=== PATIENT | male | born 1960 | race Caucasian/White ===

== ENCOUNTER → 2018-10-05 | Outpatient (CLI) | payer OTHER | LOC: M.MRI 10:51 | DX: M17.12 Unilateral primary osteoarthritis, left knee (principal); M25.462 Effusion, left knee; M23.312 Other meniscus derangements, anterior horn of medial meniscus, left knee; M23.672 Other spontaneous disruption of capsular ligament of left knee; M23.352 Other meniscus derangements, posterior horn of lateral meniscus, left knee; Z96.652 Presence of left artificial knee joint ==

== ENCOUNTER 2018-10-27 06:53 | Inpatient (IN) | payer OTHER ==
[2018-10-15 09:01] LABS: HEMATOCRIT 44.5 % (42.0-52.0); HEMOGLOBIN 15.5 gm/dL (14.0-18.0); MCH 31.7 pg (26.0-34.0); MCHC 34.8 g/dL (28.0-37.0); MCV 90.9 fL (80.0-100.0); MPV 7.7 fl. (7.2-11.1); RBC 4.89 mil/uL (4.50-6.00); RDW-CV 13.2 % (10.5-14.5); WBC 4.9 thou/uL (4.0-11.0)
[2018-10-15 09:02] LABS: URINE BILIRUBIN NEGATIVE (Negative); URINE BLOOD NEGATIVE (Negative); URINE CLARITY CLEAR; URINE COLOR YELLOW; URINE GLUCOSE-RANDOM NEGATIVE (Negative); URINE KETONES NEGATIVE (Negative); URINE LEUKOCYTES-REFLEX NEGATIVE (Negative); URINE NITRITE-REFLEX NEGATIVE (Negative); URINE PROTEIN NEGATIVE (Negative); URINE SPECIFIC GRAVITY <= 1.005 (1.005-1.030); URINE UROBILINOGEN 0.2 E.U./dl (0.2-1.0)
[2018-10-15 09:10] LABS: PROTIME 9.8 Seconds (9.20-11.50)
[2018-10-15 10:10] LABS: ALBUMIN 3.8 g/dL (3.4-5.0); POTASSIUM 3.9 mmol/L (3.5-5.1); TOTAL BILIRUBIN 0.7 mg/dL (<0.1-1.0); TOTAL PROTEIN 7.3 g/dL (6.4-8.2)
--- NOTE | 2018-10-15 16:41 | EKG ---
[place] [address] ELECTROCARDIOGRAM REPORT Name: BERTHA MONTEZ Room: PRE IN [facility]#: [id number] Admission: Attend Phys: Archana Gomez Discharge: Date of : 64 Report #: [id number] THIS REPORT FOR: //name// [facility] Test Date: 2018-10-15 Test Time: 09:12:20 Pat Name: BERTHA GARNETTWALLACE Department: Room: Gender: M Strategic Partnership Manager: : 1960 Requested By: Kamron Tarango Order Number: [id number] Reading MD: Satish Mccoy Measurements Intervals Robinson Rate: 60 P: 15 MS: 142 QRS: 9 QRSD: 86 T: -5 QT: 409 QTc: 409 Interpretive Statements Sinus rhythm Borderline T abnormalities, inferior leads No previous ECG available for comparison Electronically Signed On 10-15-2018 16:41:09 HVAC SPECIALIST by Satish Mccoy [email or web address] <ELECTRONICALLY SIGNED> By: Satish Mccoy MD, [facility] 10/15/18 1641 0912 1 Satish Mccoy MD, FACC /EPI
[~2018-10-27] VITALS: Ht 160 cm; Wt 89.8 kg
--- NOTE | ~2018-10-27 | OP ---
[facility] [address] [place] [address] OPERATIVE REPORT Name: BERTHA MONTEZ Room: [address] IN M.R.#: [id number] Admission: 10/27/18 Attend Phys: Archana Gomez Discharge: 10/28/18 Date of : 64 Report #: [id number] THIS REPORT FOR: //name// CC: Ganesh Huerta PREOPERATIVE DIAGNOSIS: Left knee osteoarthritis. POSTOPERATIVE DIAGNOSIS: Left knee osteoarthritis. PROCEDURE: Left total knee arthroplasty. SURGEON: Kamron Tarango II, DO C SOFTWARE ENGINEER: TRU Garrido ANESTHESIA: General endotracheal. ESTIMATED BLOOD LOSS: 50 mL. ANTIBIOTICS: Ancef preoperatively. DRAINS: Medium Hemovac. COMPLICATIONS: None. CONDITION: Stable to recovery room. IMPLANTS: Listed in the operative record and progress note. BRIEF HISTORY: The patient was seen in the preoperative area. Preoperative H and P was performed. Site was marked, questions were answered. Risks and benefits were discussed with the patient in detail about the surgery. The patient wished to proceed assuming all risk. DESCRIPTION OF PROCEDURE: The patient was taken to the Operating Suite and placed supine on the operative table and given appropriate anesthesia. A well-padded tourniquet was applied to the upper thigh, which was inflated to 300 mmHg after gravity exsanguination. The operative knee was sterilely prepped and draped. Incision was begun by midline incision. This was carried down to subcutaneous tissues. A medial parapatellar arthrotomy was performed and carried down to bone. The patella was then everted and excess soft tissue was removed from around the femur. Femoral cutting block was then applied, checked with a drop wiliam for rotational alignment, pinned in appropriate position and appropriate cuts were made. A 4-in-1 cutting block was then applied to check for rotational alignment, pinned in [place] [address] OPERATIVE REPORT Name: BERTHA MONTEZ Room: [address] IN [facility].#: [id number] Admission: 10/27/18 Attend Phys: Archana Gomez Discharge: 10/28/18 Date of : 64 Report #: [id number] were made. The tibia was then exposed. Excess meniscus was removed. Retractor was placed along the collateral ligaments. The tibial cutting block was applied, pinned in appropriate position, checked with a drop wiliam for rotational alignment and slope and appropriate cut was made. The tibial bone was removed. Tibial baseplate was then applied, checked for rotational alignment with the drop wiliam and pinned in appropriate position. The femur was then applied and a box cut was reamed. This was then trialed with the appropriate spacer, which showed excellent fit and fill and excellent stability of the knee throughout all range of motion. The patella was reamed in appropriate fashion and sized to appropriate size. Three peg holes were drilled. It was then trialed and shown to have excellent flexion and extension, excellent tracking of the patella within the groove. These trials were then removed. The tibia was punched in appropriate fashion. Bone ends were cleansed with Pulsavac irrigation. Cement was mixed and applied to the final implants. These were then malleted in position and held the knee in extension and compressed to allow the cement to cure. After it cured, excess was removed using a [place] and osteotome. The wound was then copiously irrigated and the final spacer was then malleted in position. Tourniquet was deflated. Hemostasis was obtained with electrocautery. Pain cocktail was injected. PRP gel was sprayed throughout the internal aspects of the knee. A medium Hemovac drain was applied. Capsule was closed with #2 FiberWire and #1 Vicryl in gujnny-ak-nslau fashion. Skin was closed with 2-0 Vicryl and running 3-0 Monocryl. Dermabond and sterile dressing was applied. Shen wrap and PolarCare applied. The patient was transported to Recovery Room in stable condition. Counts were correct throughout the procedure. By: [id number] Tarango II DO /nt
[~2018-10-27 06:53] MED LIST: COZAAR 25 MG TA25 M1 PO; LOPRESSOR25 PO; LOSARTAN-HCTZ1 EAC3 PO
[2018-10-27 14:48] VITALS: BP 123/71
[2018-10-27 15:25] VITALS: BP 110/86
[2018-10-27 19:55] VITALS: BP 125/79
[2018-10-28 00:30] VITALS: BP 130/65
--- NOTE | 2018-10-28 04:18 | NUR ---
ASSUMED AT START OF SHIFT PT RESTING IN BED PAIN MEDICATION GIVEN REQUESTED, DRESSING INTACT WITH POLAR PACK TO KNEE. DISCUSSED PLAN OF CARE VERBALIZED UNDERSTANDING AND AGREEABLE.
[2018-10-28 04:26] VITALS: BP 118/73
[2018-10-28 04:29] LABS: HEMATOCRIT 37.2 % (42.0-52.0)
[2018-10-28 07:50] VITALS: BP 130/74
--- NOTE | 2018-10-28 12:40 | NUR ---
RECIEVED O.T. ORDER. WILL DEFER TO P.T. AND NURSING. PLEASE ORDER FURTHER O.T. SERVICES IF NEEDED.
[2018-10-28] MEDS ORDERED: PERCOCET 5-3251 EACH PO (14:08)
[2018-10-28] MEDS ORDERED: XARELTO10 MG PO (14:09)
[2018-10-28 14:18] VITALS: BP 130/74
[2018-10-28 14:50] VITALS: BP 130/74
--- NOTE | 2018-10-28 16:01 | NUR ---
ASSUMED CARE OF PATIENT AT APPROX 0730. ALERT AND ORIENTED X4. ASSESSMENT COMPLETED AND CHARTED. VSS ON ROOM AIR. NO COMPAINTS OF NAUSEA, OR SOA. PAIN HAS BEEN MANAGED WITH ORAL MEDICATION. ANTIBIOTICS INFUSED ORDERED. WORKED WELL WITH THERAPIES TODAY/ DISCHARGE HOME WITH HOME HEALTH AT 1600, WITH ALL PERSONAL BELONGINGS AND DISCHARGE INFORMATION. PATIENT STATED THAT HE HAD ALREADY FILLED HIS PAIN AND BLOOD THINNER SCRIPTS PRIOR TO SURGERY.
--- NOTE | 2018-10-28 16:06 | NUR ---
FARMWORKER CRANBERRY SPOKE TO THE PATIENT TO DISCUSS HIS HOME SITUATION, DISCHARGE PLANNING, AND TO INFORM OF THE ROLE OF CM. PATIENT ACTIVE, INDEPENDENT, AND WORKED PRIOR TO ADMISSION. PATIENT RESIDES AT HOME WITH SPOUSE AND INFROMS THAT HIS SPOUSE WILL BE AVAILABLE TO ASSIST AT D/C. PATIENT OWNS A WALKER. PATIENT HAS NO HX OF HH OR SNF. PATIENT INFORMS THAT HE PLANS TO RETURN HOME TODAY AND REQUEST HH WITH [facility]. D/C CLINICAL RESOURCE DIRECTOR SPOKE TO INTAKE WITH [facility] TO INFORM OF THE REFERRAL, AND FAXED THE PATIENT'S D/C ORDERS. [facility] TO CONTACT THE PATIENT TO ARRANGE VISIT. CM WILL REMAIN AVIALABLE TO ASSIST AND FOLLOW NEEDED.
== END 2018-10-28 16:00 | disposition home health service (06) | DRG 470 ==
LOC: M.PRE 06:53 → M.TBA 09:09 → M.PRE 10:12 → M.ORTHSURG 14:45 → M.PRE 15:16 → M.ORTHSURG 10-28 16:00
PROVIDERS: Orthopaedic Surgery; ADMIT Internal Medicine
PROC: 0SRD0J9 Replacement of Left Knee Joint with Synthetic Substitute, Cemented, Open Approach (ICD-10-PCS; principal; 2018-10-28)
DX: M17.12 Unilateral primary osteoarthritis, left knee (principal); F17.220 Nicotine dependence, chewing tobacco, uncomplicated; Z79.899 Other long term (current) drug therapy; I10 Essential (primary) hypertension

== ENCOUNTER → 2018-11-16 | Outpatient (CLI) | payer OTHER ==
[~2018-11-16] MED LIST changes: +PERCOCET 5-3251 EACH PO; +XARELTO10 MG PO
== END ==
LOC: M.MRI 16:08
DX: M17.11 Unilateral primary osteoarthritis, right knee (principal); M22.41 Chondromalacia patellae, right knee; M25.461 Effusion, right knee; R60.0 Localized edema

== ENCOUNTER 2018-12-22 07:04 | Inpatient (IN) | payer OTHER ==
[2018-12-10 10:33] LABS: HEMATOCRIT 42.7 % (42.0-52.0); HEMOGLOBIN 14.6 gm/dL (14.0-18.0); MCH 29.9 pg (26.0-34.0); MCHC 34.1 g/dL (28.0-37.0); MCV 87.7 fL (80.0-100.0); MPV 7.2 fl. (7.2-11.1); RBC 4.87 mil/uL (4.50-6.00); RDW-CV 13.7 % (10.5-14.5); WBC 6.3 thou/uL (4.0-11.0)
[2018-12-10 10:52] LABS: URINE BILIRUBIN NEGATIVE (Negative); URINE BLOOD NEGATIVE (Negative); URINE CLARITY CLEAR; URINE COLOR YELLOW; URINE GLUCOSE-RANDOM NEGATIVE (Negative); URINE KETONES NEGATIVE (Negative); URINE LEUKOCYTES-REFLEX NEGATIVE (Negative); URINE NITRITE-REFLEX NEGATIVE (Negative); URINE PROTEIN NEGATIVE (Negative); URINE UROBILINOGEN 0.2 E.U./dl (0.2-1.0)
[2018-12-10 10:54] LABS: ALBUMIN 3.7 g/dL (3.4-5.0); CALCIUM 9.1 mg/dL (8.5-10.1); CREATININE 0.9 mg/dL (0.6-1.3); POTASSIUM 3.9 mmol/L (3.5-5.1); TOTAL BILIRUBIN 0.8 mg/dL (<0.1-1.0); TOTAL PROTEIN 7.4 g/dL (6.4-8.2)
[~2018-12-22] VITALS: Ht 160 cm; Wt 79.4 kg
--- NOTE | ~2018-12-22 | OP ---
[facility] [address] [place] [address] OPERATIVE REPORT Name: BERTHA MONTEZ Room: [address] IN M.R.#: [id number] Admission: 12/22/18 Attend Phys: Archana Gomez Discharge: 12/23/18 Date of : 64 Report #: [id number] THIS REPORT FOR: //name// CC: Ganesh Huerta DATE OF SERVICE: 12/22/2018 PREOPERATIVE DIAGNOSIS: Right knee osteoarthritis. POSTOPERATIVE DIAGNOSIS: Right knee osteoarthritis. PROCEDURE: Right total knee arthroplasty. SURGEON: Kamron Tarango II, DO SENIOR BIOSTATISTICIAN/GROUP LEADER: TRU Garrido. ANESTHESIA: General endotracheal. ESTIMATED BLOOD LOSS: 50 mL. ANTIBIOTICS: Ancef preoperatively. DRAINS: Wound VAC. COMPLICATIONS: None. CONDITION: The patient stable to recovery room. IMPLANTS: Listed in operative record and progress note. BRIEF HISTORY: The patient was seen in the preoperative area. Preoperative H and P was performed. Site was marked, questions were answered. The risks and benefits were discussed with the patient in detail about surgery. The patient wished to proceed and assumed all risks. DESCRIPTION OF PROCEDURE: The patient was taken to the operative suite and placed supine on the operating table and given appropriate anesthesia. A well-padded tourniquet applied to upper thigh, was inflated to 300 mmHg after gravity exsanguination. The operative knee was sterilely prepped and draped. Surgery began with a midline incision. This was carried down through subcutaneous tissues. A medial parapatellar arthrotomy was performed and carried down to bone. The patella was everted and excess soft tissue removed on the femur. The femoral cutting block was then applied, checked with drop wiliam [facility] [address] [place] [address] OPERATIVE REPORT Name: BERTHA MONTEZ PERLA Room: [address] IN .R.#: [id number] Admission: 12/22/18 Attend Phys: Archana Gomez Discharge: 12/23/18 Date of : 64 Report #: [id number] for rotational alignment, pinned in appropriate position, appropriate cuts were made. A 4-in-1 cutting block was then applied, checked for rotational alignment, pinned in appropriate position and appropriate cuts were made. The tibia was then exposed. Excess meniscus was removed. Retractor was placed along the collateral ligaments. The tibial cutting block was applied, pinned in appropriate position and checked with a drop wiliam for rotational alignment and slope, and appropriate cut was made. The tibial bone was removed. The tibial base plate was then applied, checked for rotational alignment with the drop wiliam and pinned in appropriate position. The reamer was then applied and box cut was reamed. This was then trialed with appropriate spacer, which showed excellent fit and fill and excellent stability of the knee through all range of motion. The patella was then reamed in appropriate fashion and sized to appropriate size. Three peg holes were drilled and the knee was then trialed and showed excellent flexion and extension, excellent tracking of the patella within the groove. These trials were removed. The tibia was punched in appropriate fashion. Bone ends were cleaned with Pulsavac irrigation and cement was mixed and applied to final implants. These were then malleted in position and held the knee in extension and compressed to allow the cement to cure. After it cured, excess was removed utilizing [place] and osteotome. The wound was then copiously irrigated and the final spacer was then malleted into position. The tourniquet was deflated. Hemostasis was obtained with electrocautery. Pain cocktail was injected. PRP gel spread in the internal aspects of the knee. Medium Hemovac drain was applied. Capsule was closed with #2 FiberWire and 1-0 Vicryl in [id number]-[id number] fashion. Skin was closed with 2-0 Vicryl and running 3-0 Monocryl. Dermabond and sterile dressing applied. Shen wrap and PolarCare applied. The patient transported to recovery in stable condition. Counts were correct throughout the procedure. By: [id number] Tarango II DO /nt
[2018-12-22 09:00] VITALS: BP 128/77
[2018-12-22 17:25] VITALS: BP 124/79
--- NOTE | 2018-12-22 18:57 | NUR ---
PT REMAINED A&Ox4 DURING SHIFT. DENIED PAIN. CAPNO IN PLACE 3LOX ON. VITALS STABLE, CHARTED. HEMOVAC IN PLACE. IV IN L FA PATENT, INFUSING. DRESSING IS CLEAN, DRY AND INTACT. POLARPACK IN PLACE. HOURLY ROUNDING DONE. FALL PRECAUTIONS IN PLACE. CALL LIGHT WITHIN REACH.
[2018-12-22 21:00] VITALS: BP 137/74
--- NOTE | 2018-12-22 23:52 | NUR ---
INITAL ASSESMENT COMPLETED AT 2100. PT POST OPERATIVE RIGHT TOTAL KNEE ARTHROPLASTY. PT ON CONTINUOUS PULSE OXYMETRY AND CAPNOGRAPHY PER POST OP ORDERS. PT STARTED ON PO OXYCODONE PRIOR TO CPM TONIGHT. PT RECIEVING IV FUIDS AND POST OP IV ANTIBIOTICS ORDERED. CALL LIGHT IN REACH. PT USING PROPERLY.
[2018-12-22 23:55] VITALS: BP 137/62
--- NOTE | 2018-12-23 01:09 | NUR ---
PT ON CPM FOR > 2 HRS. CPM STARTED AT -5 TO 75. PT INCREASED TO 90DEGREES DURING TREATMENT.
[2018-12-23 04:00] VITALS: BP 136/74
[2018-12-23 04:17] LABS: HEMATOCRIT 35.4 % (42.0-52.0); HEMOGLOBIN 12.1 gm/dL (14.0-18.0)
[2018-12-23 04:30] VITALS: BP 136/74
--- NOTE | 2018-12-23 06:10 | NUR ---
PT PROGRESSING TOWARD GOALS. PT STARTED CPM AT -5 TO 75 THEN INCREASED TO 90 DEGREES LAST NIGHT. PT'S VITAL SIGNS WITHIN NORMAL LIMITS THROUGHOUT SHIFT. PAIN CONTROLLED WITH PO OXYCODONE. NO NAUSEA OR VOMITING. PT TOLERATING PO FOOD AND FLUIDS WITHOUT DIFFICULTY. NO ACUTE CHANGES, WILL CONTINUE PLAN OF CARE.
[2018-12-23 07:40] VITALS: BP 144/69
[2018-12-23] MEDS ORDERED: XARELTO10 MG PO (11:49)
[2018-12-23 11:50] VITALS: BP 144/69
--- NOTE | 2018-12-23 12:14 | NUR ---
PT.READY TO DISCHARGE. MADE ROUNDS AND OKD PT.TO DISCHARGE. NEEDS TO DISCHARGE PT. NURSING SAID PT.NOT ON XARELTO THIS TIME. HE HAS A FRONT WHEEL WALKER AT HOME. HE USED [facility] IN OCT AND WOULD LIKE TO USE THEM AGAIN. WILL FAXE REFERRAL AND DISCHARGE ORDERS TO [facility] WHEN ORDERS RECEIVED.
[2018-12-23 13:58] VITALS: BP 144/69
[2018-12-23] MEDS ORDERED: PERCOCET PO (14:09)
[2018-12-23] MEDS ORDERED: COLACE100 MG PO (14:22)
--- NOTE | 2018-12-23 15:26 | NUR ---
ASSUMED CARE OF PATIENT AT APPROX 0730. ALERT AND ORIENTED X4. ASSESSMENT COMPLETED AND CHARTED. VSS ON ROOM AIR. NO COMPLAINTS OF NAUSEA OR SOA. PAIN HAS BEEN MANAGED WITH ORAL MEDICATIONS. PATIENT WORKED WELL WITH THERAPIES AND PROGRESSED TOWARD GOALS. PATIENT VERY ANXIOUS AND EAGER TO GO HOME RIGHT AFTER AFTERNOON THERAPY. PATIENT DISCHARGED AT 1520 WITH ALL PERSONAL BELONGINGS AND DISCHARGE INFORMATION.
== END 2018-12-23 15:20 | disposition home health service (06) | DRG 470 ==
LOC: M.TBA 07:04 → M.ORTHSURG 07:04 → M.SUR 10:32 → EDSTATUS 10:33 → M.PRE 10:47 → M.ORTHSURG 15:57 → M.PRE 16:14 → M.ORTHSURG 12-23 15:20
PROVIDERS: Orthopaedic Surgery; ADMIT Internal Medicine
PROC: 0SRC0J9 Replacement of Right Knee Joint with Synthetic Substitute, Cemented, Open Approach (ICD-10-PCS; principal; 2018-12-22)
DX: M17.11 Unilateral primary osteoarthritis, right knee (principal); I10 Essential (primary) hypertension; F17.220 Nicotine dependence, chewing tobacco, uncomplicated; M17.12 Unilateral primary osteoarthritis, left knee; E66.9 Obesity, unspecified; Z68.31 Body mass index [BMI] 31.0-31.9, adult; Z88.8 Allergy status to other drugs, medicaments and biological substances; Z82.49 Family history of ischemic heart disease and other diseases of the circulatory system; Z79.899 Other long term (current) drug therapy